=== PATIENT | female | born 1950 | race Caucasian/White ===

== ENCOUNTER 2023-08-12 10:09 | Outpatient (OUT) | payer MEDICARE, OTHER, SELFPAY ==
--- NOTE | 2023-08-12 10:19 | XR_ITS ---
The [address] [address] Patient Name: JASON RAMOS MRN: [id number] date: 1950 Sex: F Assigned Patient Location: [facility] Current Patient Location: [facility] Accession/Order Number: [id number] Exam Date: 08/12/2023 10:35 Report Date: 08/12/2023 12:42 At the request of: REA MARIEE Procedure: XR abdomen 1V EXAM: XR abdomen 1V HISTORY: kidney stone COMPARISON: None. TECHNIQUE: AP view of the abdomen. FINDINGS: Nonobstructive bowel gas pattern is noted. There is no suspicious calcification. Constipation. The osseous structures are intact. XR/XR abdomen 1V IMPRESSION: Nonobstructive bowel gas pattern. Electronically authenticated by: DEBORAH LAUREN Date: 08/12/2023 12:42
== END 2023-08-12 10:10 | disposition home or self-care (01) ==
LOC: RAD 10:14
PROVIDERS: PCP Family Medicine; Visit Provider Urology
DX: N20.0 Calculus of kidney (principal)
CPT/HCPCS: 74018

== ENCOUNTER 2023-08-13 11:20 | Outpatient (REF) | payer MEDICARE, OTHER, SELFPAY ==
[2023-08-13 11:53] LABS: Calcium Urine Random 10.8 mg/dL (5.1-21.0); Creatinine Urine Random 40.35 mg/dL (20.00-300.00); Sodium Urine Random 58 mmol/L (30-90)
[2023-08-13 11:55] LABS: Creatinine 24 Hour Urine 1008.75 mg/24 hr (800.00-1800.00); Sodium 24 Hour Urine 145 mmol/24h (40-220); Total Volume 24 Hour Urine 2500 mL/24hr
[2023-08-14 11:12] LABS: Magnesium, U 4.6 mg/dL (Not Estab.); Phosphorus, Urine 31.9 mg/dL (Not Estab.); Phosphorus,Urine 24h 798 mg/24 hr (261-1078)
[2023-08-16 17:08] LABS: Oxalates, Urine 7 mg/L (Undefined); Oxalates, Urine 24hr 18 mg/24 hr (4-31)
[2023-08-20 14:09] LABS: Citric Acid, U, 24hr 870 mg/24 hr (320-1240); Citric Acid, Urine 348 mg/L (Undefined)
== END 2023-08-13 11:21 | disposition home or self-care (01) ==
LOC: LAB 11:20
PROVIDERS: PCP Family Medicine; Visit Provider Urology
DX: N20.0 Calculus of kidney (principal)
CPT/HCPCS: 81050; 82340; 82507; 82570; 83735; 83945; 84105; 84300; 84560

== ENCOUNTER 2023-09-04 15:04 | Outpatient (OUT) | payer MEDICARE, OTHER, SELFPAY ==
[2023-09-04 15:36] LABS: Anion Gap 15.2; Carbon Dioxide 30.6 mmol/L (21.0-32.0); Chloride 99 mmol/L (98-107); Potassium 3.8 mmol/L (3.5-5.1); Sodium 141 mmol/L (136-145)
[2023-09-05 11:10] LABS: PTH, Intact 61 pg/mL (15-65)
== END 2023-09-04 15:05 | disposition home or self-care (01) ==
LOC: LAB 15:08
PROVIDERS: PCP Family Medicine; Visit Provider Urology
DX: N20.0 Calculus of kidney (principal)
CPT/HCPCS: 36415; 80051; 83970

== ENCOUNTER 2024-08-21 09:23 | Outpatient (OUT) | payer MEDICARE, OTHER, SELFPAY ==
--- NOTE | 2024-08-21 09:30 | XR_ITS ---
The [address] [address] Patient Name: JASON RAMOS MRN: [id number] date: 1950 Sex: F Assigned Patient Location: [facility] Current Patient Location: [facility] Accession/Order Number: [id number] Exam Date: 08/21/2024 10:04 Report Date: 08/21/2024 10:04 At the request of: REA MARIEE MD Procedure: XR abdomen 1V KUB: CLINICAL INFORMATION: Kidney stone follow-up. COMPARISON: KUB 08/12/2023 FINDINGS: No suspicious urinary tract calcification. A phlebolith is seen within the pelvis. No bowel obstruction or free air. Osseous structures demonstrate degenerative change. XR/XR abdomen 1V IMPRESSION: NO RADIOPAQUE STONES ARE IDENTIFIED. Impression dictated by: Jaycob Flaherty Jr., DAmandeepOAmandeep08/21/2024 10:04 AM Dictation Location: [place] [address] Electronically authenticated by: [id number] Y Date: 08/21/2024 10:04
--- OUTSIDE RECORDS SUMMARY | 2024-08-21 09:37 | XMS_ITS | CCD ---
Author Organization [facility] Care Team Providers Care Farm Field Manager Name Role Phone DR RICCARDO GRIMES Primary Care Unavailable KODI ., DR LUCIA Admitting Unavailable MARIEE ., DR LUCIA Consulting Unavailable MARIEE ., DR LUCIA Attending Unavailable MYRA, DR HAMMAD Carrillo Consulting Unavailable RICCARDO GRIMES Primary Care Physician Jeff MARIEE Attending Jeff Allison Attending Unavailable Jeff MARIEE Attending Unavailable RICCARDO GRIMES Primary Care Physician Allergies Allergy Classification Reported Allergen(s) Allergy Type Date of Onset Reaction(s) Facility (3 sources) Seasonal allergy; Translations: [Seasonal] Allergy to substance Unknown (qualifier value) [facility] (1 source) No Known Medication Allergies; Translations: [No Known Medication Allergies] Propensity to adverse reactions (disorder) [facility] Repository NEGATED: Highlighted row has been ruled out! (1 source) Drug allergy [facility] NEGATED: Highlighted row has been ruled out! (1 source) Drug allergy [facility] Medications Current Medications Medication Drug Class(es) Dates Sig (Normalized) Sig (Original) Benadryl (2 sources) Histamine-1 Receptor Antagonist Start: 0 Benadryl Refills(s) 0 Start Date: 07/13/19 Status: Ordered hydroCHLOROthiazide 12.5 mg oral capsule (2 sources) Thiazide Diuretic Start: 3 take 1 capsule by mouth once daily hydrochlorothiazide 12.5 mg Cap 12.5 mg = 1 cap(s), Oral, Daily, # 90 cap(s), Refills(s) 3, Pharmacy: [id number], 165, cm, 09/07/22 8:04:00 EDT, Height/Length Dosing, 72, kg, 09/07/22 8:04:00 EDT, Weight Dosing Start Date: 04/23/23 Status: Ordered Start: 05-11-2022 take 1 capsule by mo [facility] once daily hydrochlorothiazide 12.5 mg Cap 12.5 mg = 1 cap(s), Oral, Daily, # 90 cap(s), Refills(s) 3, Pharmacy: [id number], 165, cm, 09/01/21 9:36:00 EDT, Height/Length Dosing, 76.1, kg, 09/01/21 9:36:00 EDT, Weight Dosing Start Date: 05/11/22 Status: Ordered Tramadol (2 sources) Opioid Agonist Start: 07-13-2019 tramadol Refil ls(s) 0 Start Date: 07/13/19 Status: Ordered Completed/Discontinued Medications Medication Drug Class(es) Dates Sig (Normalized) Sig (Original) potassium bicarbonate 25 meq effervescent oral tablet (2 sources) Start: 05-11-2022 End: 04-17-2024 take 1 tablet by mouth twice daily Klor-Con/EF 25 mEq oral tablet, effervescent 25 mEq = 1 tab(s), Oral, BID, X 90 day(s), # 180 tab(s), Refills(s) 3, Pharmacy: [id number], 165, cm, 09/07/22 8:04:00 EDT, Height/Length Dosing, 72, kg, 09/07/22 8:04:00 EDT, Weight Dosing Start Date: 04/23/23 Stop Date: 04/17/24 Status: Ordered Problems Problem Classification Problem Date Documented Date Episodic/Chronic Calculus of urinary tract (8 sources) Calculus of kidney; Translations: [Kidney stone] Onset: 08-28-2022 Episodic Disorders of lipid metabolism (2 sources) Hyperlipidemia 07-13-2019 Chronic Essential hypertension (2 sources) Hypertensive disorder 07-13-2019 Chronic Genitourinary symptoms and ill-defined conditions (2 sources) Blood in urine 07-13-2019 Episodic Results Test Name Value Interpretation Reference Range Facil ity Ambulatory Visit Summaryon 0 09-06-2023 Ambulatory Visit Summary JASON RAMOS DOB:1950 Visit Date:09/06/2023 Ambulatory Visit Instructions Your Diagnosis Kidney stone Tests Performed XR Abdomen 1 View -- Results Pending -- Please visit your patient portal for your results or contact your primary care physician. Your Care Team Attending Physician - Jeff MARIEE MD Primary Care Physician - CORNELIO GARCIA, RICCARDO Farrar This Is Your Medications List hydrochlorothiazide (hydrochlorothiazide 12.5 mg Cap) potassium bicarbonate (Klor-Con/EF 25 mEq oral tablet, effervescent) Contact prescribing physician if questions or concerns diphenhydrAMINE (Benadryl) tramadol Procedures Performed Cystoscopic removal of ureteric stent (12/15/2014), Cystoscopic laser lithotripsy of ureteric calculus (12/09/2014), Tonsillectomy. Discharge Vitals Heart Rate (Peripheral) 100 Respiratory Rate 16 Blood Pressure 127/73 Height 165 cm Height 65 in Weight 72.4 kg Weight 159.28 lb BMI 26.59 What to do next Scheduled Follow-Up Appointments Saturday 8:15 AM EDT With: KODI GARCIA, Jeff Carrillo Where: [facility] Lab Reportson 09-06-2023 Lab Reports [id number] 0TIFF [facility] Lab Reports [id number] 0TIFF [facility] Patient Educationon 09-06-19 24 Patient Education Nephrology Dietary Guidelines to Help Prevent Kidney Stones Kidney stones are deposits of minerals and salts that form inside your kidneys. Your risk of developing kidney stones may be greater depending on your diet, your lifestyle, the medicines you take, and whether you have certain medical conditions. Most people can lower their risks of developing kidney stones by following these dietary guidelines. Your dietitian may give you more specific instructions depending on your overall health and the type of kidney stones you tend to develop. What are tips for following this plan? Reading food labels ? Choose foods with no salt added or low-salt labels. Limit your salt (sodium) intake to less than 1,500 mg a day. ? Choose foods with calcium for each meal and snack. Try to eat about 300 mg of calcium at each meal. Foods that contain 200?500 mg of calcium a serving include: ? 8 oz (237 mL) of milk, nlsgfaf-pgznppdjeqyv-u airy milk, and calcium-fortifiedfruit juice. Calcium-fortified means that calcium has been added to these drinks. ? 8 oz (237 mL) of kefir, yogurt, and soy yogurt. ? 4 oz (114 g) of tofu. ? 1 oz (28 g) of cheese. ? 1 cup (150 g) of dried figs. ? 1 cup (91 g) of cooked broccoli. ? One 3 oz (85 g) can of sardines or mackerel. Most people need 1,000?1,500 mg of calcium a day. Talk to your dietitian about how much calcium is recommended for you. Shopping ? Buy plenty of fresh fruits and vegetables. Most people do not need to avoid fruits and vegetables, even if these foods contain nutrients that may contribute to kidney stones. ? When shopping for convenience foods, choose: ? Whole pieces of fruit. ? Pre-made salads with dressing on the side. ? Low-fat fruit and yogurt smoothies. ? Avoid buying frozen meals or prepared deli foods. These can be high in sodium. ? Look for foods with live cultures, such as yogurt and kefir. ? Choose high-fiber grains, such as whole-wheat breads, oat bran, and wheat cereals. Cooking ? Do not add salt to food when cooking. Place a salt shaker on the table and allow each person to add their own salt to taste. ? Use vegetable protein, such as beans, textured vegetable protein (TVP), or tofu, instead of meat in pasta, casseroles, and soups. Meal planning ? Eat less salt, if told by your dietitian. To do this: ? Avoid eating processed or pre-made food. ? Avoid eating fast food. ? Eat less animal protein, including cheese, meat, poultry, or fish, if told by your dietitian. To do this: ? Limit the number of times you have meat, poultry, fish, or cheese each week. Eat a diet free of meat at least 2 days a week. ? Eat only one serving each day of meat, poultry, fish, or seafood. ? When you prepare animal proteins, cut pieces into small portion sizes. For most meat and fish, one serving is about the size of the palm of your hand. ? Eat at least five servings of fresh fruits and vegetables each day. To do this: ? Keep fruits and vegetables on hand for snacks. ? Eat one piece of fruit or a handful of berries with breakfast. ? Have a salad and fruit at lunch. ? Have two kinds of vegetables at dinner. ? You may be told to limit foods that are high in a substance called oxalate. These include: ? Spinach (cooked), rhubarb, beets, sweet potatoes, and Beninese chard. ? Peanuts. ? Potato chips, slovenian fries, and baked potatoes with skin on. ? Nuts and nut products. ? Chocolate. ? If you regularly take a diuretic medicine, make sure to eat at least 1 or 2 servings of fruits or vegetables that are high in potassium each day. These include: ? Avocado. ? Banana. ? [place], prune, carrot, or tomato juice. ? Baked potato. ? Cabbage. ? Beans and split peas. Lifestyle ? Drink enough fluid to keep your urine pale yellow. This is the most important thing you can do. Spread your fluid intake throughout the day. ? If you drink alcohol: ? Limit how much you have to: ? 0?1 drink a day for women who are not . ? 0?2 drinks a day for men. ? Know how much alcohol is in your drink. In the [place] one drink equals one 12 oz bottle of beer (355 mL), one 5 oz glass of wine (148 mL), or one 1? oz glass of hard liquor (44 mL). ? Lose weight if told by your health care provider. Work with your dietitian to find an eating plan and weight loss strategies that work best for you. General information ? Talk to your health care provider and dietitian about taking daily supplements. Depending on your health and the cause of your kidney stones, you may be told: ? Do not take high-dose supplements of vitamin C (1,000 mg a day or more). ? To take a calcium supplement. ? To take a daily probiotic supplement. ? To take other supplements such as magnesium, fish oil, or vitamin B6. ? Take mrzn-nrh-xuyvcdm and prescription medicines only as told by your health care provider. These include supplements. What foods sh (more content not included)... [facility] Urology Office/Clinic Noteon 09-06-2023 Urology Office/Clinic Note Chief Complaint kidney stone HPI Staff 1yr KUB & metabolic work up DX: Kidney Stones *HCTZ 12.5mg and Effer K 25 meq bid therapy NEG KUB 08/12/23 24hr urine 08/13/23 Dysuria: no Incomplete bladder emptying: no Hematuria: no Frequency: no Urgency: no Nocturia: 1x Stream: good steady no straining Leaking: no Post void dripping: no Wearing pads/ Depends: no Urge incontinence: no Stress incontinence: no Incontinence without Sensory Awareness: no Abdominal pain: no Flank pain: no Sexual complaints: no History of Present Illness Tests reviewed: reviewed metabolic workup and KUB. I have reviewed the previous health record information and history for this patient from Dr. Mariee. I have reviewed and verified the staff HPI to be accurate for this encounter. There have been no associated fever, chills, flank pain, or blood in the urine. Denies any urinary infections since last encounter. Review of Systems PHQ Score Initial Depression Screen Score: 0 SCORE ROS - Provider Constitutional: denies weight loss, denies hot flashes. Eyes: denies eye problems. Gastrointestinal: denies nausea, denies vomiting. Cardiovascular: denies chest pain or angina. Integumentary: no dryness Musculoskeletal: denies musculoskeletal symptoms. ENMT: denies otolaryngeal symptoms. Respiratory: no shortness of breath. Heme/Lymph: denies easy bleeding tendency, denies easy bruising tendency. Psychiatric: no confusion, no anxiety. Genitourinary: See HPI. Physical Exam Vitals & Measurements HR: 100(Peripheral) RR: 16 BP: 127/73 HT: 65 in HT: 165 cm WT: 72.4 kg WT: 159.28 lb BMI: 26.59 General Appearance: alert , no acute distress, well nourished, well developed female. Assessment/Plan 1. Kidney stone (N20.0: Calculus of kidney) S/p lithotripsy 2014. Has passed stones on her own in the past. No recent stone analysis. Taking HCTZ 12.5mg qd and Effer-K 25 mEq bid, prefers the unflavored. Has been taking as directed. Refilled 04/2023. KUB 08/28/22 neg for obvious stones. KUB 08/12/23 neg for obvious stones. Denies pain or passage of stones since last visit. Denies gross hematuria. No UA provided today. Pt did report at last visit that she had passed a small stone a few weeks prior to appointment. Completed 24 hour urine 08/13/23 which shows no abnormalities. Great volume 2500 L. Serum met w/up 09/04/23 all wnl. PTH normal. Results reviewed with pt. Pt drinks a high intake of water daily. Pt to continue medication management and adequate water intake. -Continue medication management -Adequate water intake -Follow up in 1 year w/ KUB Follow-up With When Contact Information KODI GARCIA, Jeff Carrillo, URL [address] [place] [address]- Additional Instructions: 1 year w/ KUB Patient Education Dietary Guidelines to Help Prevent Kidney Stones I, Candy Petersen, personally scribed for Dr. Mariee on 09/06/2023 08:32:49. . Documentation recorded by the scribe, Candy Petersen, accurately reflects the services(s) I performed and decisions made by me. Authenticated by Dr. Mariee on 09/06/2023 08:39:40. Problem List/Past Medical History Ongoing Hematuria Hyperlipidemia Hypertension Kidney stone Historical No qualifying data Procedure/Surgical History Cystoscopic removal of ureteric stent (12/15/2014), Cystoscopic laser lithotripsy of ureteric calculus (12/09/2014), Tonsillectomy. Medications Benadryl hydrochlorothiazide 12.5 mg Cap, 12.5 mg= 1 cap(s), Oral, Daily, 3 refills Klor-Con/EF 25 mEq oral tablet, effervescent, 25 mEq= 1 tab(s), Oral, BID, 3 refills tramadol Allergies No Known Medication Allergies Seasonal (Unknown) Social History Tobacco Never (less than 100 in lifetime) Tobacco Use:. Never Smokeless Tobacco Use:. Household tobacco concerns: No., 09/06/2023 Family History Renal stone: Father. Immunizations Vaccine Date Status influenza virus vaccine, inactivated 02/2021 Recorded SARS-CoV-2 (COVID-19) mRNA BNT-162b2 vax 2020 Recorded influenza virus vaccine, inactivated 04/18/2020 Recorded influenza virus vaccine, live, trivalent 03/03/2019 Recorded Normal [facility] Comment on above: Result Comment: Elec tronically Signed By: Jeff MARIEE MD\.br\Date and Time Signed: 09/06/23 08:39 EDT\.br\Electronically Co-Signed By: Candy Petersen\.br\Date and Time Co-Signed: 09/06/23 08:33 EDT Lab Reportson 09-05-2023 Lab Reports [id number] 0TIFF Normal [facility] Lab Reportson 08-19-2023 Lab Reports [id number] 0TIFF Normal [facility] Lab Reportson 08-13-2023 Lab Reports [id number] 0TIFF [facility] RAD - MISCon 08-13-2023 RAD - MISC [id number] 0TIFF [facility] Ambulatory Visit Summaryon 0 09-07-2022 Ambulatory Visit Summary JASON RAMOS Kate :1950 Visit Date:09/07/2022 Ambulatory Visit Instructions Your Diagnosis Kidney stone Tests Performed Urnls Dip Stick Auto w/o Microscopy POC [id number] XR Abdomen 1 View -- Results Pending -- Please visit your patient portal for your results or contact your primary care physician. Your Care Team Attending Physician - Jeff MARIEE MD Primary Care Physician - RICCARDO GRIMES MD This Is Your Medications List hydrochlorothiazide (hydrochlorothiazide 12.5 mg Cap) potassium bicarbonate (Klor-Con/EF 25 mEq oral tablet, effervescent) Contact prescribing physician if questions or concerns diphenhydrAMINE (Benadryl) tramadol Procedures Performed Cystoscopic removal of ureteric stent (12/15/2014), Cystoscopic laser lithotripsy of ureteric calculus (12/09/2014), Tonsillectomy. Discharge Vitals Height 165 cm Height 65 in Weight 72 kg Weight 158.4 lb BMI 26.45 What to do next Scheduled Follow-Up Appointments Saturday 8:00 AM EDT With: KODI GARCIA, Jeff Carrillo Where: [facility] Normal [facility] Patient Educationon 09-08-19 23 Patient Education Urology Kidney Stones Kidney stones are rock-like masses that form inside of the kidneys. Kidneys are organs that make pee (urine). A kidney stone may move into other parts of the urinary tract, including: ? The tubes that connect the kidneys to the bladder (ureters). ? The bladder. ? The tube that carries urine out of the body (urethra). Kidney stones can cause very bad pain and can block the flow of pee. The stone usually leaves your body (passes) through your pee. You may need to have a doctor take out the stone. What are the causes? Kidney stones may be caused by: ? A condition in which certain glands make too much parathyroid hormone (primary hyperparathyroidism). ? A buildup of a type of crystals in the bladder made of a chemical called uric acid. The body makes uric acid when you eat certain foods. ? Narrowing (stricture) of one or both of the ureters. ? A kidney blockage that you were born with. ? Past surgery on the kidney or the ureters, such as gastric bypass surgery. What increases the risk? You are more likely to develop this condition if: ? You have had a kidney stone in the past. ? You have a family history of kidney stones. ? You do not drink enough water. ? You eat a diet that is high in protein, salt (sodium), or sugar. ? You are overweight or very overweight (obese). What are the signs or symptoms? Symptoms of a kidney stone may include: ? Pain in the side of the belly, right below the ribs (flank pain). Pain usually spreads (radiates) to the groin. ? Needing to pee often or right away (urgently). ? Pain when going pee (urinating). ? Blood in your pee (hematuria). ? Feeling like you may vomit (nauseous). ? Vomiting. ? Fever and chills. How is this treated? Treatment depends on the size, location, and makeup of the kidney stones. The stones will often pass out of the body through peeing. You may need to: ? Drink more fluid to help pass the stone. In some cases, you may be given fluids through an IV tube put into one of your veins at the hospital. ? Take medicine for pain. ? Make changes in your diet to help keep kidney stones from coming back. Sometimes, medical procedures are needed to remove a kidney stone. This may involve: ? A procedure to break up kidney stones using a beam of light (laser) or shock waves. ? Surgery to remove the kidney stones. Follow these instructions at home: Medicines ? Take tyqd-kqf-xvhrwbe and prescription medicines only as told by your doctor. ? Ask your doctor if the medicine prescribed to you requires you to avoid driving or using heavy machinery. Eating and drinking ? Drink enough fluid to keep your pee pale yellow. You may be told to drink at least 8?10 glasses of water each day. This will help you pass the stone. ? If told by your doctor, change your diet. This may include: ? Limiting how much salt you eat. ? Eating more fruits and vegetables. ? Limiting how much meat, poultry, fish, and eggs you eat. ? Follow instructions from your doctor about eating or drinking restrictions. General instructions ? Collect pee samples as told by your doctor. You may need to collect a pee sample: ? 24 hours after a stone comes out. ? 8?12 weeks after a stone comes out, and every 6?12 months after that. ? Strain your pee every time you pee (urinate), for as long as told. Use the strainer that your doctor recommends. ? Do not throw out the stone. Keep it so that it can be tested by your doctor. ? Keep all follow-up visits as told by your doctor. This is important. You may need follow-up tests. How is this prevented? To prevent another kidney stone: ? Drink enough fluid to keep your pee pale yellow. This is the best way to prevent kidney stones. ? Eat healthy foods. ? Avoid certain foods as told by your doctor. You may be told to eat less protein. ? Stay at a healthy weight. Where to find more information ? National Kidney Foundation (NKF): www.kidney.org ? U[employer] Care Foundation (UCF): www.urologyhealth.org Contact a doctor if: ? You have pain that gets worse or does not get better with medicine. Get help right away if: ? You have a fever or chills. ? You get very bad pain. ? You get new pain in your belly (abdomen). ? You pass out (faint). ? You cannot pee. Summary ? Kidney stones are rock-like masses that form inside of the kidneys. ? Kidney stones can cause very bad pain and can block the flow of pee. ? The stones will often pass out of the body through peeing. ? Drink enough fluid to keep your pee pale yellow. This information is not intended to replace advice given to you by your health care provider. Make sure you discuss any questions you have with your health care provider. Document Released: 11/05/2008 Document Revised: 10/06/2019 Document Reviewed: 10/06/2019 [employer] Patient Education ? 2019 [employer] [facility] Urology Office/Clinic Noteon 09-07-2022 Urology Office/Clinic Note Chief Complaint 1yr KUB HPI Staff 1yr KUB due to Kidney Stone. *HCTZ 12.5mg QD & Effer K 25meq BID therapy. KUB done 08/28/22 Passed a stone 2wks ago. Did have some lower back pain prior. N&V. Symptoms subsided after passing stone. History of Present Illness I have reviewed and verified the staff HPI to be accurate for this encounter. Review of Systems PHQ Score Initial Depression Screen Score: 0 ROS - Provider Constitutional: denies weight loss, denies hot flashes. Eyes: denies eye problems. Gastrointestinal: denies nausea, denies vomiting. Cardiovascular: denies chest pain or angina. Integumentary: no dryness Musculoskeletal: denies musculoskeletal symptoms. ENMT: denies otolaryngeal symptoms. Respiratory: no shortness of breath. Heme/Lymph: denies easy bleeding tendency, denies easy bruising tendency. Psychiatric: no confusion, no anxiety. Genitourinary: denies vaginal discharge, denies incontinence, denies dysuria, denies hematuria, denies urinary frequency, denies amenorrhea, denies menorrhagia, denies abnormal bleeding, denies pelvic pain, denies genital sores, and denies decreased libido. Physical Exam Vitals & Measurements HT: 65 in HT: 165 cm WT: 72 kg WT: 158.4 lb BMI: 26.45 General Appearance: alert , no acute distress, well nourished, well developed female. Genitourinary: bladder nonpalpable, no flank pain. Assessment/Plan 1. Kidney stone (N20.0: Calculus of kidney) KUB done 08/28/2022 does not show any stones. HCTZ 12.5mg and Effer K 25 meq bid therapy Pt states that she passed a small stone a few weeks ago,but she did not collect the stone. Pt states that she consumes roughly 7 16oz bottles of water, along with copious other fluids throughout the day. Overall pt is doing well and has no urinary complaints at this time. Pt will call our office for refills for her medications. Discussed repeating a metabolic work-up in 1 year. Will f/u in 1 year w/KUB and metabolic work-up. If pt has any concerns she can contact our office. Pt understands and acknowledges. Follow-up With When Contact Information KODI GARCIA, BAIRON Ro In 1 year 09/08/2023 EDT [facility] [address] [place] [address]- [phone] Additional Instructions: KUB Metabolic work-up Patient Education Kidney Stones, Gclx-kn-Hbdy ISondra, personally scribed for Dr. Mariee on 09/07/2022 08:44:41. . Documentation recorded by the Sondra powell, accurately reflects the services(s) I performed and decisions made by me. Problem List/Past Medical History Ongoing Hematuria Hyperlipidemia Hypertension Kidney stone Historical No qualifying data Procedure/Surgical History Cystoscopic removal of ureteric stent (12/15/2014), Cystoscopic laser lithotripsy of ureteric calculus (12/09/2014), Tonsillectomy. Medications Benadryl hydrochlorothiazide 12.5 mg Cap, 12.5 mg= 1 cap(s), Oral, Daily, 3 refills Klor-Con/EF 25 mEq oral tablet, effervescent, 25 mEq= 1 tab(s), Oral, BID, 3 refills tramadol Allergies No Known Medication Allergies Seasonal (Unknown) Social History Tobacco Never (less than 100 in lifetime) Tobacco Use:. Never Smokeless Tobacco Use:., 09/07/2022 Family History Renal stone: Father. Immunizations Vaccine Date Status influenza virus vaccine, inactivated 02/2021 Recorded SARS-CoV-2 (COVID-19) mRNA BNT-162b2 vax 2020 Recorded influenza virus vaccine, inactivated 04/18/2020 Recorded influenza virus vaccine, live, trivalent 03/03/2019 Recorded Lab Results Ambulatory Point of Care Results Bilirubin Urine Dipstick: Negative (09/07/22 08:01:00) Blood Urine Dipstick: Negative (09/07/22 08:01:00) Glucose Urine Dipstick: Negative (09/07/22 08:01:00) Ketones Urine Dipstick: Negative (09/07/22 08:01:00) Leukocytes Urine Dipstick: Trace (09/07/22 08:01:00) Nitrite Urine Dipstick: Negative (09/07/22 08:01:00) Protein Urine Dipstick: Negative (09/07/22 08:01:00) Specific [place] Urine Dipstick: 1.025 (09/07/22 08:01:00) Urine Appearance Urine Dipstick: Clear (09/07/22 08:01:00) Urine Color Urine Dipstick: Yellow (09/07/22 08:01:00) Urobilinogen Urine Dipstick: Normal 0.2-1 EU/dl (09/07/22 08:01:00) pH Urine Dipstick: 5.5 (09/07/22 08:01:00) Diagnostic Results Tests Reviewed: Reviewed UA, KUB Normal [facility] Comment on above: Result Comment: Elec tronically Signed By: Jeff MARIEE MD\.br\Date and Time Signed: 09/07/22 08:53 EDT\.br\Electronically Co-Signed By: Sondra Quintanilla MA\.br\Date and Time Co-Signed: 09/07/22 08:48 EDT XR KUB 1 VIEWon 08-28-2022 XR KUB 1 VIEW EXAMINATION: XR KUB 1 VIEW HISTORY: Kidney stone COMPARISON: No relevant comparison available. FINDINGS: KIDNEY/URETER - RIGHT: No visible renal or ureteral calcifications. KIDNEY/URETER - LEFT: No visible renal or ureteral calcifications. PELVIS: Stable pelvic calcifications compatible with phleboliths or atherosclerotic disease. BOWEL: No abnormal dilation or deviation. BONES: No acute abnormality. OTHER: Negative. No abnormal gaseous collections. IMPRESSION: 1. No appreciable urinary tract calculi. Electronically authenticated by: HAMMAD RENTERIA Date: 2022-08-28 11:03 Normal [facility] Vital Signs Date Time Vital Sign Value Performing Clinician Nona evans 09-06-2023 07:59-0400 Blood Pressure Location Jeff MARIEE [facility] 09-06-2023 07:59-0400 Diastolic blood pressure 73 mm[Hg] Jeff MARIEE [facility] 09-06-2023 07:59-0400 Heart rate 100 /min Jeff MARIEE [facility] 09-06-2023 07:59-0400 Respiratory rate 16 /min Jeff MARIEE [facility] 09-06-2023 07:59-0400 Systolic blood pressure 127 mm[Hg] Jeff MARIEE [facility] Encounters Encounter Date Encounter Type Care Provider Facility Start: 09-11-2024 ambulatory Jeff MARIEE Facili ty:[facility] Start: 09-06-2023 End: 09-07-2023 ambulatory Jeff MARIEE Facility:[facility] Start: 09-06-2023 End: 09-06-2023 Patient encounter procedure Jeff MARIEE [facility] Start: 09-07-2022 End: 09-08-2022 ambulatory Jeff MARIEE Facility:[facility] Start: 09-07-2022 End: 09-07-2022 Patient encounter procedure Jeff Gerardo KODI [facility] Start: 08-28-2022 End: 08-29-[address] RICCARDO GRIMES Facility:[facility] Procedures Date Procedure Procedure Detail Performing Clinician Start: 12-15-2014 Cystoscopic removal of ureteric stent Jeff KODI Start: 12-09-2014 Cystoscopic laser lithotripsy of ureteric calculus Jeff MARIEE Tonsillectomy Jeff MARIEE Immunizations Immunization Date Immunization Notes [facility]21 influenza virus vaccine, unspecified formulation Jeff MARIEE [facility] 06-03-2020 SARS-CoV-2 (COVID-19 ) mRNA BNT-162b2 vax Jeff MARIEE [facility] 04-18-2020 influenza virus vaccine, unspecified formulation Jefflaurie MARIEE [facility] 03-03-2019 influenza virus vaccine, live, attenuated, for intranasal use Jeff MARIEE [facility] Payers Date Payer Category Payer Medicare [id number] 1958 Medicare [id number] 1958 Unknown [id number] 1950 Unknown [id number] 1950 Unknown [id number] 1950 Unknown [id number] 1950 Unknown [id number] Social History Date Type Detail Facility Start: 09-07-2022 End: 09-06-2023 Tobacco smoking status Never smoked tobacco (finding) [facility] Tobacco smoking status Never [facility] Sex Assigned At Female [facility] Functional Status Date Assessment Result Facility 09-06-2023 Functional Status N/A [facility] 09-07-2022 Functional Status N/A [facility] Hospital Discharge instructions 09-06-2023 Note Date & Type Note Facility 09-06-2023 Hospital Discharg e instructions Patient Education 09/06/2023 08:02:05 Dietary Guidelines to Help Prevent Kidney Stones Dietary Guidelines to Help Prevent Kidney Stones Kidney stones are deposits of minerals and salts that form inside your kidneys. Your risk of developing kidney stones may be greater depending on your diet, your lifestyle, the medicines you take, and whether you have certain medical conditions. Most people can lower their risks of developing kidney stones by following these dietary guidelines. Your dietitian may give you more specific instructions depending on your overall health and the type of kidney stones you tend to develop. What are tips for following this plan? Reading food labels Choose foods with no salt added or low-salt labels. Limit your salt (sodium) intake to less than 1,500 mg a day. Choose foods with calcium for each meal and snack. Try to eat about 300 mg of calcium at each meal. Foods that contain 200 500 mg of calcium a serving include: ?8 oz (237 mL) of milk, bhmeqkh-qvwcnvtfmtgs-jcysn milk, and calcium-fortifiedfruit juice. Calcium-fortified means that calcium has been added to these drinks. ?8 oz (237 mL) of kefir, yogurt, and soy yogurt. ?4 oz (114 g) of tofu. ?1 oz (28 g) of cheese. ?1 cup (150 g) of dried figs. ?1 cup (91 g) of cooked broccoli. ?One 3 oz (85 g) can of sardines or mackerel. Most people need 1,000 1,500 mg of calcium a day. Talk to your dietitian about how much calcium is recommended for you. Shopping Buy plenty of fresh fruits and vegetables. Most people do not need to avoid fruits and vegetables, even if these foods contain nutrients that may contribute to kidney stones. When shopping for convenience foods, choose: ?Whole pieces of fruit. ?Pre-made salads with dressing on the side. ?Low-fat fruit and yogurt smoothies. Avoid buying frozen meals or prepared deli foods. These can be high in sodium. Look for foods with live cultures, such as yogurt and kefir. Choose high-fiber grains, such as whole-wheat breads, oat bran, and wheat cereals. Cooking Do not add salt to food when cooking. Place a salt shaker on the table and allow each person to add their own salt to taste. Use vegetable protein, such as beans, textured vegetable protein (TVP), or tofu, instead of meat in pasta, casseroles, and soups. Meal planning Eat less salt, if told by your dietitian. To do this: ?Avoid eating processed or pre-made food. ?Avoid eating fast food. Eat less animal protein, including cheese, meat, poultry, or fish, if told by your dietitian. To do this: ?Limit the number of times you have meat, poultry, fish, or cheese each week. Eat a diet free of meat at least 2 days a week. ?Eat only one serving each day of meat, poultry, fish, or seafood. ?When you prepare animal proteins, cut pieces into small portion sizes. For most meat and fish, one serving is about the size of the palm of your hand. Eat at least five servings of fresh fruits and vegetables each day. To do this: ?Keep fruits and vegetables on hand for snacks. ?Eat one piece of fruit or a handful of berries with breakfast. ?Have a salad and fruit at lunch. ?Have two kinds of vegetables at dinner. You may be told to limit foods that are high in a substance called oxalate. These include: ?Spinach (cooked), rhubarb, beets, sweet potatoes, and Beninese chard. ?Peanuts. ?Potato chips, slovenian fries, and baked potatoes with skin on. ?Nuts and nut products. ?Chocolate. If you regularly take a diuretic medicine, make sure to eat at least 1 or 2 servings of fruits or vegetables that are high in potassium each day. These include: ?Avocado. ?Banana. ?[place], prune, carrot, or tomato juice. ?Baked potato. ?Cabbage. ?Beans and split peas. Lifestyle Drink enough fluid to keep your urine pale yellow. This is the most important thing you can do. Spread your fluid intake throughout the day. If you drink alcohol: ?Limit how much you have to: ?0 1 drink a day for women who are not . ?0 2 drinks a day for men. ?Know how much alcohol is in your drink. In the [place] one drink equals one 12 oz bottle of beer (355 mL), one 5 oz glass of wine (148 mL), or one 1 oz glass of hard liquor (44 mL). Lose weight if told by your health care provider. Work with your dietitian to find an eating plan and weight loss strategies that work best for you. General information Talk to your health care provider and dietitian about taking daily supplements. Depending on your health and the cause of your kidney stones, you may be told: ?Do not take high-dose supplements of vitamin C (1,000 mg a day or more). ?To take a calcium supplement. ?To take a daily probiotic supplement. ?To take other supplements such as magnesium, fish oil, or vitamin B6. Take vggd-onv-dgukxvx and prescription medicines only as told by your health care provider. These include supplements. What foods should I limit? Limit your intake of the following foods, or eat them as told by your dietitian. Vegetables Spinach. Rhubarb. Beets. Canned vegetables. Pickles. Olives. Baked potatoes with skin. Grains Wheat bran. Baked goods. Salted crackers. Cereals high in sugar. Meats and other proteins Nuts. Nut butters. Large portions of meat, poultry, or fish. Salted, precooked, or cured meats, such as sausages, meat loaves, and hot dogs. Dairy Cheeses. Beverages Regular soft drinks. Regular vegetable juice. Seasonings and condiments Seasoning blends with salt. Salad dressings. Soy sauce. Ketchup. Barbecue sauce. Other foods Canned soups. Canned pasta sauce. Casseroles. Pizza. Lasagna. Frozen meals. Potato chips. Frisian fries. The items listed above may not be a complete list of foods and beverages you should limit. Contact a dietitian for more information. What foods should I avoid? Talk to your dietitian about specific foods you should avoid based on the type of kidney stones you have and your overall health. Fruits Grapefruit. The item listed above may not be a complete list of foods and beverages you should avoid. Contact a dietitian for more information. Summary Kidney stones are deposits of minerals and salts that form inside your kidneys. You can lower your risk of kidney stones by making changes to your diet. The most important thing you can do is drink enough fluid. Drink enough fluid to keep your urine pale yellow. Talk to your dietitian about how much calcium you should have each day, and eat less salt and animal protein as told by your dietitian. This information is not intended to replace advice given to you by your health care provider. Make sure you discuss any questions you have with your health care provider. Document Revised: 08/30/2022 Document Reviewed: 08/30/2022 [employer] Patient Education 2022 [employer] Follow Up Care 09/07/2022 08:53:02 With:KODI GARCIA, Jeff Carrlilo, URL Address: [address] [place] [id number] When: Unknown [facility] Hospital Discharge instructions 09-07-2022 Note Date & Type Note Facility 09-07-2022 Hospital Discharg e instructions Patient Education 09/07/2022 08:03:21 Kidney Stones, Qfpu-lm-Quyo Kidney Stones Kidney stones are rock-like masses that form inside of the kidneys. Kidneys are organs that make pee (urine). A kidney stone may move into other parts of the urinary tract, including: The tubes that connect the kidneys to the bladder (ureters). The bladder. The tube that carries urine out of the body (urethra). Kidney stones can cause very bad pain and can block the flow of pee. The stone usually leaves your body (passes) through your pee. You may need to have a doctor take out the stone. What are the causes? Kidney stones may be caused by: A condition in which certain glands make too much parathyroid hormone (primary hyperparathyroidism). A buildup of a type of crystals in the bladder made of a chemical called uric acid. The body makes uric acid when you eat certain foods. Narrowing (stricture) of one or both of the ureters. A kidney blockage that you were born with. Past surgery on the kidney or the ureters, such as gastric bypass surgery. What increases the risk? You are more likely to develop this condition if: You have had a kidney stone in the past. You have a family history of kidney stones. You do not drink enough water. You eat a diet that is high in protein, salt (sodium), or sugar. You are overweight or very overweight (obese). What are the signs or symptoms? Symptoms of a kidney stone may include: Pain in the side of the belly, right below the ribs (flank pain). Pain usually spreads (radiates) to the groin. Needing to pee often or right away (urgently). Pain when going pee (urinating). Blood in your pee (hematuria). Feeling like you may vomit (nauseous). Vomiting. Fever and chills. How is this treated? Treatment depends on the size, location, and makeup of the kidney stones. The stones will often pass out of the body through peeing. You may need to: Drink more fluid to help pass the stone. In some cases, you may be given fluids through an IV tube put into one of your veins at the hospital. Take medicine for pain. Make changes in your diet to help keep kidney stones from coming back. Sometimes, medical procedures are needed to remove a kidney stone. This may involve: A procedure to break up kidney stones using a beam of light (laser) or shock waves. Surgery to remove the kidney stones. Follow these instructions at home: Medicines Take twwk-qam-qwaahdn and prescription medicines only as told by your doctor. Ask your doctor if the medicine prescribed to you requires you to avoid driving or using heavy machinery. Eating and drinking Drink enough fluid to keep your pee pale yellow. You may be told to drink at least 8 10 glasses of water each day. This will help you pass the stone. If told by your doctor, change your diet. This may include: ?Limiting how much salt you eat. ?Eating more fruits and vegetables. ?Limiting how much meat, poultry, fish, and eggs you eat. Follow instructions from your doctor about eating or drinking restrictions. General instructions Collect pee samples as told by your doctor. You may need to collect a pee sample: ?24 hours after a stone comes out. ?8 12 weeks after a stone comes out, and every 6 12 months after that. Strain your pee every time you pee (urinate), for as long as told. Use the strainer that your doctor recommends. Do not throw out the stone. Keep it so that it can be tested by your doctor. Keep all follow-up visits as told by your doctor. This is important. You may need follow-up tests. How is this prevented? To prevent another kidney stone: Drink enough fluid to keep your pee pale yellow. This is the best way to prevent kidney stones. Eat healthy foods. Avoid certain foods as told by your doctor. You may be told to eat less protein. Stay at a healthy weight. Where to find more information National Kidney Foundation (NKF): www.kidney.org Urology Care Foundation (UCF): www.urologyhealth.org Contact a doctor if: You have pain that gets worse or does not get better with medicine. Get help right away if: You have a fever or chills. You get very bad pain. You get new pain in your belly (abdomen). You pass out (faint). You cannot pee. Summary Kidney stones are rock-like masses that form inside of the kidneys. Kidney stones can cause very bad pain and can block the flow of pee. The stones will often pass out of the body through peeing. Drink enough fluid to keep your pee pale yellow. This information is not intended to replace advice given to you by your health care provider. Make sure you discuss any questions you have with your health care provider. Document Released: 11/05/2008 Document Revised: 10/06/2019 Document Reviewed: 10/06/2019 [employer] Patient Education 2020 [employer] Follow Up Care 09/01/2021 10:34:48 With:KODI GARCIA, Jeff Carrillo, BAIRON Address: [facility] [address], [place] [phone] When:09/08/2023 Comments:KUB [facility] Evaluation + Plan note Note Date & Type Note Facility Evaluation + Plan note Future Appointments Appointment Date:09/06/2023 08:00:00 AM Scheduled Provider:Jeff MARIEE MD Location:[facility] Appointment Type:URO Office Visit [facility] Evaluation + Plan note Note Date & Type Note Facility Evaluation + Plan note Future Appointments Appointment Date:09/11/2024 08:15:00 AM Scheduled Provider:Jeff MARIEE MD Location:[facility] Appointment Type:URO Office Visit [facility] Hospital course Narrative Note Date & Type Note Facility Hospital course Narrative No data available for this section [facility] Progress note Note Date & Type Note Facility Progress note No data available for this section [facility] Summary Purpose Family History No Family History Records FoundNo Family History Records Found No data available for this section Advance Directives No Advanced Directives Records FoundNo Advanced Directives Records Found Additional Source Comments INFORMATION SOURCE (unrecogn ized section and content) DATE CREATED AUTHOR [facility]/05/2022 [facility] DATE CREATED AUTHOR AUTHOR'S ORGANIZ ATION 09/06/2023 [facility] Patient Care team informatio n (unrecognized section and content) Personnel Name: RICCARDO GRIMES MD Address: Address: [address] [place], [place] [id number] Personnel Name: RICCARDO GRIMES MD Address: Address: [address] [place], [place] [id number] FOR RECORDS PERTAINING TO PATIENTS WHO ARE OR HAVE BEEN ENROLLED IN A CHEMICAL DEPENDENCY/SUBSTANCEABUSE PROGRAM, SOME INFORMATION MAY BE OMITTED. This clinical summary was aggregated from multiple sources. Caution should be exercised in using it in the provision of clinical care. This summary normalizes information from multiple sources, and as a consequence, information in this document may materially change the coding, format and clinical context of patient data. In addition, data may be omitted in some cases. CLINICAL DECISIONS SHOULD BE BASED ON THE PRIMARY CLINICAL RECORDS. [facility] [facility]. provides no warranty or guarantee of the accuracy or completeness of information in this document.
== END 2024-08-21 09:24 | disposition home or self-care (01) ==
PROVIDERS: PCP Family Medicine; Visit Provider Urology
DX: N20.0 Calculus of kidney (principal)
CPT/HCPCS: 74018